=== PATIENT | male | born 1970 | race Caucasian/White ===

== ENCOUNTER → 2018-11-03 | Outpatient (CLI) | payer OTHER ==
--- NOTE | 2018-11-03 15:18 | PCVCIMAG ---
APPROVED REPORT Study performed: 11/03/2018 14:30:44 Exam: Stress Echocardiogram Indication: Hyperlipidemia, Hypertension, Elevated Calcium Score Patient Location: Echo lab Stress Nurse: Luz Marina Venegas RN Status: routine Ht: 5 ft 5 in HR: 73 bpm BP: 128/70 mmHg Rhythm: NSR Medical History Medical History: Hyperlipidemia, HTN Procedure The patient underwent an Exercise Stress Test using the [place] Protocol. Blood pressure, heart rate, and EKG were monitored. An Echocardiogram was performed by library technician in four stages in quad fashion. At peak stress, four selected images were obtained and placed side by side with resting images for comparison. Stress Test Details Stress Test: Exercise stress testing was performed using a [place] protocol. HR Resting HR: 73 bpmMax Heart Rate (APMHR): 170 bpm Max HR Achieved: 160 bpmTarget HR (85% APMHR): 144 bpm % of APMHR: 94 Recovery HR: 94 bpm HR response to stress: Normal HR response to stress BP Resting BP: 128/70 mmHg Max BP: 190/70 mmHg Recovery BP: 162/68 mmHg BP response to stress: Normal blood pressure response to stress. ECG Resting ECG: Sinus Rhythmm, LVH with repolarization Stress ECG: Sinus Rhythm ST Change: Horizontal ST depression Maximum ST Deviation: 3 mm Recovery ECG: Sinus Rhythm Recovery ST Change: Normal Recovery ST Deviation: 0 mm Recovery Arrhythmia: None Clinical Reason for Termination: Maximal effort Exercise duration: 13 min 05 sec Highest Stage Achieved: Stage 4: 4.2 mph at 16% grade. Exercise capacity: 17.20 METs Overall Exercise Capacity for Age: Good Angina Score: None Stress ECG Conclusion Clinical: Non-ischemic Abnormal exercise stress ECG consistent with stress-induced myocardial ischemia. Crowder Treadmill Score is -2.0 which is Moderate risk. Pre-Stress Echo The resting Echocardiogram showed normal left ventricular contractility with an estimated Ejection Fraction of about 55-60%. Normal wall motion in all segments on baseline images. Post-Stress Echo The stress Echocardiogram showed normal left ventricular contractility with an estimated Ejection Fraction of about 60-65%. Normal augmentation of wall motion in all segments on post stress images. Clinical No clinical or ECG evidence for ischemia. Conclusion Clinical Response: Non-ischemic Exercise Capacity: Superior Stress ECG Response: Ischemic Stress Echo Images: Non-ischemic The left ventricle is normal in size and wall thickness in both the rest and stress images. Abnormal electrocardiographic response to exercise, likely representing a false positive response in setting of LVH Normal stress echocardiogram with maximal exercise stress. Other Information Study Quality: Adequate <Conclusion> The left ventricle is normal in size and wall thickness in both the rest and stress images. Abnormal electrocardiographic response to exercise, likely representing a false positive response in setting of LVH Normal stress echocardiogram with maximal exercise stress.
== END | disposition home or self-care (01) ==
LOC: PCVCIMAG 13:38
PROVIDERS: ATTEND Family Medicine
DX: I10 Essential (primary) hypertension (principal); R93.1 Abnormal findings on diagnostic imaging of heart and coronary circulation; E78.2 Mixed hyperlipidemia
CPT/HCPCS: 93325; 93351